=== PATIENT | male | born 1960 | race Caucasian/White ===

== ENCOUNTER 2020-09-01 10:19 | Inpatient (IN) | payer OTHER ==
[~2020-09-01] VITALS: Ht 190.5 cm; Wt 123.9 kg
[~2020-09-01 10:19] MED LIST: ENOXAPARIN SOD 40 MG/0.4 ML SYRINGE SC ONE
[2020-09-01 11:13] LABS: Basophils # (auto) 0.1 10 ^3/uL (0-0.2); Basophils % (auto) 0.8 % (0.0-2.0); Eosinophils # (auto) 0.1 10 ^3/uL (0-0.8); Eosinophils % (auto) 1.4 % (0.0-7.0); Hematocrit 44.1 % (41.0-53.0); Hemoglobin 14.7 g/dL (13.5-17.5); Lymphocytes % (auto) 25.4 % (10.0-50.0); Mean Corpuscular Hgb Conc. 33.2 g/dL (32.0-36.0); Mean Corpuscular Volume 96.4 fL (80.0-100.0); Monocytes # (auto) 0.5 10 ^3/uL (0-1.3); Monocytes % (auto) 6.5 % (0.0-12.0); Neutrophils # (auto) 5.3 10 ^3/uL (1.6-8.6); Neutrophils % (auto) 65.9 % (37.0-80.0); Nucleated Red Blood Cells % 0.1 %; Platelet Count (auto) 198 10^3/uL (140-450); Red Blood Cells 4.58 10^6/uL (4.5-5.90); Red Cell Distribution Width 14.1 % (11.8-14.3)
[2020-09-01 11:31] LABS: Alanine Aminotransferase 25 U/L (16-61); Anion Gap 5 (5-15); Aspartate Aminotransferase 17 U/L (15-37); Blood Urea Nitrogen 17 mg/dL (7-18); Calcium 8.9 mg/dL (8.5-10.1); Carbon Dioxide 23 mmol/L (21-32); Chloride 110 mmol/L (98-107); Glucose 117 mg/dL (74-106); Sodium 138 mmol/L (136-145)
[2020-09-01 11:36] LABS: Alkaline Phosphatase 119 U/L (45-117); BUN/Creatinine Ratio 15.5; Bilirubin, Total 0.4 mg/dL (0.2-1.0); GFR African American 88 mL/min; GFR Non-African American 73 mL/min
[2020-09-01] MEDS ORDERED: cloNIDine HCL 0.1 MG TAB ONE (12:56)
[2020-09-01] MEDS ORDERED: cloNIDine HCL 0.1 MG TAB PO ONE ×2 (13:15→14:15)
[2020-09-01] MEDS ORDERED: MORPHINE SULF INJ 2 MG/ML SYRINGE 1ML IV PRN ×2 (16:30→16:45)
[2020-09-01] MEDS ORDERED: NITROGLYCERIN 0.4 MG SL TAB SL PRN (16:30)
[2020-09-01] MEDS ORDERED: LACTULOSE 20Gm/30ML SOLN PO PRN (16:45)
[2020-09-01] MEDS ORDERED: TEMAZEPAM 15 MG CAP PO PRN (16:45)
[2020-09-01] MEDS ORDERED: traMADol HCL 50 MG TAB PO PRN (16:45)
[2020-09-01] MEDS ORDERED: ACETAMINOPHEN 500 MG TAB PO PRN (16:45)
[2020-09-01] MEDS ORDERED: PROMETHAZINE HCL 25 MG/ML 1ML IV PRN (16:45)
[2020-09-01] MEDS ORDERED: DEXTROSE (50%) 50ML SYRG IV PRN (16:45)
[2020-09-01] MEDS ORDERED: METOPROLOL TARTRATE 25 MG TAB PO ONE (17:00)
[2020-09-01] MEDS: ACCU-CHEK COMFORT CURVE STRIP VI SCH ×2 (17:00→21:58)
[2020-09-01] MEDS ORDERED: ENOXAPARIN SOD 80 MG/0.8ML SYRINGE SC ONE (17:30)
[2020-09-01] MEDS: METOPROLOL TARTRATE 25 MG TAB PO SCH (21:59)
[2020-09-02] MEDS: ASPirin 81 mg TAB PO SCH (08:03)
[2020-09-02] MEDS: METOPROLOL TARTRATE 25 MG TAB PO SCH ×2 (08:03→20:12)
[2020-09-02] MEDS: ACCU-CHEK COMFORT CURVE STRIP VI SCH (08:03)
[2020-09-02 08:37] LABS: Basophils # (auto) 0.1 10 ^3/uL (0-0.2); Eosinophils # (auto) 0.1 10 ^3/uL (0-0.8); Eosinophils % (auto) 1.9 % (0.0-7.0); Hematocrit 39.6 % (41.0-53.0); Hemoglobin 13.3 g/dL (13.5-17.5); Lymphocytes # (auto) 2.3 10 ^3/uL (0.4-5.4); Mean Corpuscular Hemoglobin 31.9 pg (28.0-32.0); Mean Corpuscular Hgb Conc. 33.6 g/dL (32.0-36.0); Monocytes # (auto) 0.5 10 ^3/uL (0-1.3); Monocytes % (auto) 7.1 % (0.0-12.0); Neutrophils # (auto) 4.3 10 ^3/uL (1.6-8.6); Nucleated Red Blood Cells % 0.1 %; Platelet Count (auto) 205 10^3/uL (140-450); Red Blood Cells 4.17 10^6/uL (4.5-5.90); White Blood Cell 7.3 10^3/uL (4.4-10.8)
[2020-09-02 08:51] LABS: Albumin 3.5 g/dL (3.4-5.0); BUN/Creatinine Ratio 14.4; Bilirubin, Total 0.7 mg/dL (0.2-1.0); Calcium 8.5 mg/dL (8.5-10.1); Total Protein 7.2 g/dL (6.4-8.2)
[2020-09-02 08:56] LABS: Potassium 4.7 mmol/L (3.5-5.1)
[2020-09-02] MEDS ORDERED: ENALAPRIL MALEATE 2.5 MG TAB PO SCH (10:00)
[2020-09-02] MEDS ORDERED: ENOXAPARIN SOD 120 MG/0.8 ML SYRINGE SC SCH (10:00)
[2020-09-02] MEDS ORDERED: ENOXAPARIN SOD 40 MG/0.4 ML SYRINGE SC SCH (10:00)
[2020-09-02] MEDS ORDERED: FUROSEMIDE 40 MG/4 ML VIAL IV ONE (13:45)
[2020-09-02] MEDS ORDERED: IOHEXOL 350 MG/ML 100ML IJ ONE (14:56)
[2020-09-02] MEDS: amLODIPine BESYLATE 5 MG TAB PO SCH (16:00)
[2020-09-02 16:36] LABS: Cholesterol 207 mg/dL (< 200); HDL Cholesterol 51 mg/dL (40-59); LDL Cholesterol 142 mg/dL (< 100); Triglycerides 112 mg/dL (< 150)
[2020-09-02] MEDS ORDERED: BENA10TA9 PO (18:08)
[2020-09-02 19:01] LABS: Urine Bacteria NONE SEEN /hpf (None Seen); Urine Blood Negative /uL (Negative); Urine Hyaline Cast FEW /lpf (0 - 2); Urine Specific Gravity 1.015 (1.001-1.035); Urine WBC <1 /hpf (0 - 3)
[2020-09-02 19:04] LABS: Amphetamine Screen, Urine NEGATIVE (NEGATIVE); Barbiturate Scree,Urine NEGATIVE (NEGATIVE); Benzodiazephine Screen, Urine NEGATIVE (NEGATIVE); Cannabinoid Screen, Urine NEGATIVE (NEGATIVE); Cocaine Screen, Urine NEGATIVE (NEGATIVE); Opiate Scree,Urine NEGATIVE (NEGATIVE); Phencyclidine Screen, Urine NEGATIVE (NEGATIVE)
[2020-09-02 19:09] LABS: Alcohol, Urine < 3.0 mg/dL (0-10)
[2020-09-02] MEDS: ENOXAPARIN SOD 60 MG/0.6 ML SYRINGE SC SCH (20:12)
[2020-09-02 22:17] VITALS: BP 135/52
[2020-09-03 05:00] VITALS: BP 142/68
[2020-09-03 05:35] LABS: Basophils # (auto) 0.1 10 ^3/uL (0-0.2); Basophils % (auto) 1.4 % (0.0-2.0); Eosinophils # (auto) 0.2 10 ^3/uL (0-0.8); Eosinophils % (auto) 2.5 % (0.0-7.0); Hematocrit 40.1 % (41.0-53.0); Hemoglobin 13.4 g/dL (13.5-17.5); Lymphocytes % (auto) 42.1 % (10.0-50.0); Mean Corpuscular Hemoglobin 31.9 pg (28.0-32.0); Mean Corpuscular Hgb Conc. 33.5 g/dL (32.0-36.0); Mean Corpuscular Volume 95.3 fL (80.0-100.0); Monocytes # (auto) 0.5 10 ^3/uL (0-1.3); Monocytes % (auto) 7.5 % (0.0-12.0); Neutrophils # (auto) 3.3 10 ^3/uL (1.6-8.6); Neutrophils % (auto) 46.5 % (37.0-80.0); Nucleated Red Blood Cells % 0.1 %; Platelet Count (auto) 195 10^3/uL (140-450); Red Blood Cells 4.21 10^6/uL (4.5-5.90); Red Cell Distribution Width 14.1 % (11.8-14.3); White Blood Cell 7.2 10^3/uL (4.4-10.8)
[2020-09-03 05:53] LABS: BUN/Creatinine Ratio 13.5; Calcium 8.9 mg/dL (8.5-10.1); Magnesium 2.3 mg/dL (1.6-2.6); Phosphorus 3.6 mg/dL (2.5-4.90); Potassium 3.8 mmol/L (3.5-5.1)
[2020-09-03 08:49] VITALS: BP 157/67
[2020-09-03] MEDS: ASPirin 81 mg TAB PO SCH (10:00)
[2020-09-03] MEDS: ENOXAPARIN SOD 60 MG/0.6 ML SYRINGE SC SCH (10:00)
[2020-09-03] MEDS: ENALAPRIL MALEATE 10 MG TAB PO SCH (10:26)
[2020-09-03] MEDS: amLODIPine BESYLATE 5 MG TAB PO SCH (10:26)
[2020-09-03] MEDS: METOPROLOL TARTRATE 25 MG TAB PO SCH ×2 (10:27→21:18)
[2020-09-03] MEDS: FUROSEMIDE 40 MG/4 ML VIAL IV SCH (10:29)
[2020-09-03] MEDS ORDERED: ENOXAPARIN SOD 80 MG/0.8ML SYRINGE SC ONE (10:30)
[2020-09-03 13:00] VITALS: BP 132/70
[2020-09-03 17:00] VITALS: BP 145/68
[2020-09-03] MEDS: ENOXAPARIN SOD 80 MG/0.8ML SYRINGE SC SCH (21:18)
[2020-09-03 22:00] VITALS: BP 145/72
[2020-09-04 05:00] VITALS: BP 141/71
[2020-09-04 05:51] LABS: Basophils # (auto) 0.1 10 ^3/uL (0-0.2); Basophils % (auto) 0.8 % (0.0-2.0); Eosinophils # (auto) 0.2 10 ^3/uL (0-0.8); Eosinophils % (auto) 2.6 % (0.0-7.0); Hematocrit 39.7 % (41.0-53.0); Hemoglobin 13.7 g/dL (13.5-17.5); Lymphocytes # (auto) 3.1 10 ^3/uL (0.4-5.4); Lymphocytes % (auto) 41.7 % (10.0-50.0); Mean Corpuscular Hemoglobin 32.6 pg (28.0-32.0); Mean Corpuscular Hgb Conc. 34.4 g/dL (32.0-36.0); Mean Corpuscular Volume 94.8 fL (80.0-100.0); Monocytes # (auto) 0.6 10 ^3/uL (0-1.3); Neutrophils # (auto) 3.4 10 ^3/uL (1.6-8.6); Neutrophils % (auto) 46.9 % (37.0-80.0); Platelet Count (auto) 194 10^3/uL (140-450); Red Blood Cells 4.19 10^6/uL (4.5-5.90); Red Cell Distribution Width 13.8 % (11.8-14.3); White Blood Cell 7.3 10^3/uL (4.4-10.8)
[2020-09-04 06:17] LABS: BUN/Creatinine Ratio 16.4; Calcium 8.7 mg/dL (8.5-10.1)
[2020-09-04 08:30] VITALS: BP 126/54
[2020-09-04 08:53] LABS: INR 1.03 (0.9-1.15); Partial Thromboplastin Time 27.3 sec (23.0-31.2)
[2020-09-04] MEDS: FUROSEMIDE 40 MG/4 ML VIAL IV SCH (09:20)
[2020-09-04] MEDS: amLODIPine BESYLATE 5 MG TAB PO SCH (09:24)
[2020-09-04] MEDS: ENOXAPARIN SOD 80 MG/0.8ML SYRINGE SC SCH ×2 (09:24→21:23)
[2020-09-04] MEDS: METOPROLOL TARTRATE 25 MG TAB PO SCH ×2 (09:24→21:23)
[2020-09-04] MEDS: ENALAPRIL MALEATE 10 MG TAB PO SCH (09:24)
[2020-09-04] MEDS: ERGOCALCIFEROL 50,000 UNIT(1.25MG) CAP PO SCH (12:21)
[2020-09-04 12:30] VITALS: BP 136/82
[2020-09-04 16:57] VITALS: BP 131/56
[2020-09-04] MEDS: ATORVASTATIN 20 MG TAB PO SCH (21:23)
[2020-09-04 22:00] VITALS: BP 139/54
[2020-09-05 05:00] VITALS: BP 134/58
[2020-09-05 06:49] LABS: Albumin 3.7 g/dL (3.4-5.0); Calcium 8.9 mg/dL (8.5-10.1); Potassium 3.9 mmol/L (3.5-5.1)
[2020-09-05 06:52] LABS: BUN/Creatinine Ratio 16.8
[2020-09-05 06:55] LABS: Bilirubin, Total 0.6 mg/dL (0.2-1.0); Total Protein 7.1 g/dL (6.4-8.2)
[2020-09-05] MEDS: ENOXAPARIN SOD 80 MG/0.8ML SYRINGE SC SCH (07:21)
[2020-09-05 08:30] VITALS: BP 147/90
[2020-09-05 08:37] LABS: Basophils # (auto) 0 10 ^3/uL (0-0.2); Basophils % (auto) 0.6 % (0.0-2.0); Eosinophils # (auto) 0.2 10 ^3/uL (0-0.8); Eosinophils % (auto) 2.2 % (0.0-7.0); Hematocrit 42.1 % (41.0-53.0); Hemoglobin 14.1 g/dL (13.5-17.5); Lymphocytes # (auto) 2.8 10 ^3/uL (0.4-5.4); Lymphocytes % (auto) 35.6 % (10.0-50.0); Mean Corpuscular Hemoglobin 31.9 pg (28.0-32.0); Mean Corpuscular Hgb Conc. 33.6 g/dL (32.0-36.0); Mean Corpuscular Volume 95.1 fL (80.0-100.0); Monocytes # (auto) 0.6 10 ^3/uL (0-1.3); Neutrophils # (auto) 4.2 10 ^3/uL (1.6-8.6); Neutrophils % (auto) 53.6 % (37.0-80.0); Platelet Count (auto) 206 10^3/uL (140-450); Red Blood Cells 4.42 10^6/uL (4.5-5.90); Red Cell Distribution Width 13.6 % (11.8-14.3); White Blood Cell 7.8 10^3/uL (4.4-10.8)
[2020-09-05] MEDS: amLODIPine BESYLATE 5 MG TAB PO SCH (08:41)
[2020-09-05] MEDS: METOPROLOL TARTRATE 25 MG TAB PO SCH ×2 (08:41→21:52)
[2020-09-05] MEDS: ENALAPRIL MALEATE 10 MG TAB PO SCH (08:42)
[2020-09-05 13:17] LABS: Folate (Folic Acid) 11.92 ng/mL (5.38-24)
[2020-09-05 14:30] VITALS: BP 144/58
[2020-09-05] MEDS ORDERED: fentaNYL CITRATE 100 MCG/2 ML VL ONE (14:37)
[2020-09-05] MEDS ORDERED: LIDOCAINE 2%HCL (LOCAL ANESTH.) INJ 20ML MDV ONE (14:38)
[2020-09-05] MEDS ORDERED: MIDAZOLAM HCL 1MG/1ML-2 ML VIAL ONE (14:38)
[2020-09-05 17:00] VITALS: BP 141/59
[2020-09-05] MEDS ORDERED: WARFARIN SODIUM 10 MG TAB PO ONE (17:00)
[2020-09-05] MEDS ORDERED: CYANOCOBALAMIN (B-12) 1000 MCG/1 ML VIAL IM ONE (17:00)
[2020-09-05] MEDS: hydrALAZINE HCL 20 MG/ML VL IV PRN (17:23)
[2020-09-05] MEDS: ENOXAPARIN SOD 120 MG/0.8 ML SYRINGE SC SCH (21:38)
[2020-09-05] MEDS: ATORVASTATIN 20 MG TAB PO SCH (21:38)
[2020-09-05 21:59] VITALS: BP 160/70
[2020-09-06 05:00] VITALS: BP 136/63
[2020-09-06 06:50] LABS: Basophils # (auto) 0.1 10 ^3/uL (0-0.2); Basophils % (auto) 0.7 % (0.0-2.0); Eosinophils # (auto) 0.2 10 ^3/uL (0-0.8); Eosinophils % (auto) 1.7 % (0.0-7.0); Hematocrit 41.2 % (41.0-53.0); Hemoglobin 14.1 g/dL (13.5-17.5); Lymphocytes % (auto) 33.5 % (10.0-50.0); Mean Corpuscular Hemoglobin 32.4 pg (28.0-32.0); Mean Corpuscular Hgb Conc. 34.3 g/dL (32.0-36.0); Mean Corpuscular Volume 94.5 fL (80.0-100.0); Monocytes # (auto) 0.6 10 ^3/uL (0-1.3); Neutrophils # (auto) 5.1 10 ^3/uL (1.6-8.6); Neutrophils % (auto) 57.1 % (37.0-80.0); Platelet Count (auto) 210 10^3/uL (140-450); Red Blood Cells 4.36 10^6/uL (4.5-5.90); Red Cell Distribution Width 13.5 % (11.8-14.3); White Blood Cell 8.9 10^3/uL (4.4-10.8)
[2020-09-06 07:03] LABS: Albumin 3.7 g/dL (3.4-5.0); Calcium 9.1 mg/dL (8.5-10.1); Potassium 3.8 mmol/L (3.5-5.1)
[2020-09-06 07:05] LABS: BUN/Creatinine Ratio 15.1
[2020-09-06 07:13] LABS: INR 1.08 (0.9-1.15); Partial Thromboplastin Time 30.1 sec (23.0-31.2)
[2020-09-06 07:20] LABS: Bilirubin, Total 0.7 mg/dL (0.2-1.0); Total Protein 6.8 g/dL (6.4-8.2)
[2020-09-06 08:33] VITALS: BP 142/58
[2020-09-06] MEDS: amLODIPine BESYLATE 5 MG TAB PO SCH (10:35)
[2020-09-06] MEDS: METOPROLOL TARTRATE 25 MG TAB PO SCH ×2 (10:35→21:42)
[2020-09-06] MEDS: ENALAPRIL MALEATE 10 MG TAB PO SCH (10:36)
[2020-09-06] MEDS: ENOXAPARIN SOD 120 MG/0.8 ML SYRINGE SC SCH ×2 (10:36→21:42)
[2020-09-06 13:05] VITALS: BP 128/72
[2020-09-06 15:12] VITALS: BP 128/72
[2020-09-06] MEDS: WARFARIN SODIUM 10 MG TAB PO ONE ×2 (17:00→17:32)
[2020-09-06 17:06] VITALS: BP 115/71
[2020-09-06] MEDS: ATORVASTATIN 20 MG TAB PO SCH (21:42)
[2020-09-06 22:00] VITALS: BP 139/74
[2020-09-07 05:00] VITALS: BP 124/79
[2020-09-07 06:23] LABS: Basophils # (auto) 0.1 10 ^3/uL (0-0.2); Basophils % (auto) 0.8 % (0.0-2.0); Eosinophils # (auto) 0.2 10 ^3/uL (0-0.8); Eosinophils % (auto) 2.3 % (0.0-7.0); Hemoglobin 13.6 g/dL (13.5-17.5); Lymphocytes % (auto) 40.7 % (10.0-50.0); Mean Corpuscular Hemoglobin 32.1 pg (28.0-32.0); Mean Corpuscular Hgb Conc. 33.9 g/dL (32.0-36.0); Mean Corpuscular Volume 94.7 fL (80.0-100.0); Monocytes # (auto) 0.6 10 ^3/uL (0-1.3); Monocytes % (auto) 8.3 % (0.0-12.0); Neutrophils # (auto) 3.5 10 ^3/uL (1.6-8.6); Neutrophils % (auto) 47.9 % (37.0-80.0); Platelet Count (auto) 183 10^3/uL (140-450); Red Blood Cells 4.22 10^6/uL (4.5-5.90); Red Cell Distribution Width 13.5 % (11.8-14.3); White Blood Cell 7.3 10^3/uL (4.4-10.8)
[2020-09-07 06:39] LABS: Albumin 3.7 g/dL (3.4-5.0); Calcium 8.6 mg/dL (8.5-10.1); Potassium 3.9 mmol/L (3.5-5.1)
[2020-09-07 06:44] LABS: BUN/Creatinine Ratio 14.5; Bilirubin, Total 0.6 mg/dL (0.2-1.0); INR 1.35 (0.9-1.15)
[2020-09-07 08:31] VITALS: BP 146/74
[2020-09-07] MEDS: METOPROLOL TARTRATE 25 MG TAB PO SCH (09:24)
[2020-09-07] MEDS: amLODIPine BESYLATE 5 MG TAB PO SCH (09:24)
[2020-09-07] MEDS: ENALAPRIL MALEATE 10 MG TAB PO SCH (09:25)
[2020-09-07] MEDS: ENOXAPARIN SOD 120 MG/0.8 ML SYRINGE SC SCH ×2 (09:25→21:41)
[2020-09-07 12:33] VITALS: BP 130/74
[2020-09-07 16:31] VITALS: BP 137/71
[2020-09-07] MEDS ORDERED: WARFARIN SODIUM 5 MG TAB PO ONE (17:00)
[2020-09-07 21:30] VITALS: BP 148/74
[2020-09-07] MEDS: ATORVASTATIN 20 MG TAB PO SCH (21:41)
[2020-09-08 05:00] VITALS: BP 139/79
[2020-09-08 06:18] LABS: INR 1.46 (0.9-1.15); Partial Thromboplastin Time 35.8 sec (23.0-31.2)
[2020-09-08 06:23] LABS: Calcium 8.6 mg/dL (8.5-10.1)
[2020-09-08 06:26] LABS: BUN/Creatinine Ratio 13.7; Magnesium 2.5 mg/dL (1.6-2.6)
[2020-09-08 08:15] VITALS: BP 160/77
[2020-09-08 08:33] VITALS: BP 160/77
[2020-09-08] MEDS: amLODIPine BESYLATE 5 MG TAB PO SCH (09:59)
[2020-09-08] MEDS: ENOXAPARIN SOD 120 MG/0.8 ML SYRINGE SC SCH ×2 (09:59→21:47)
[2020-09-08] MEDS: ENALAPRIL MALEATE 10 MG TAB PO SCH (09:59)
[2020-09-08 12:30] VITALS: BP 141/64
[2020-09-08 16:31] VITALS: BP 155/64
[2020-09-08] MEDS ORDERED: WARFARIN SODIUM 2.5 MG TAB PO ONE (17:00)
[2020-09-08] MEDS: ATORVASTATIN 20 MG TAB PO SCH (21:47)
[2020-09-08 22:00] VITALS: BP 156/65
[2020-09-09] VITALS (8 sets, daily range): BP systolic 149–169; BP diastolic 61–99
[2020-09-09 07:33] LABS: INR 1.57 (0.9-1.15); Partial Thromboplastin Time 38.2 sec (23.0-31.2)
[2020-09-09] MEDS: ENOXAPARIN SOD 120 MG/0.8 ML SYRINGE SC SCH ×2 (10:04→21:33)
[2020-09-09] MEDS: amLODIPine BESYLATE 5 MG TAB PO SCH (10:04)
[2020-09-09] MEDS: ENALAPRIL MALEATE 10 MG TAB PO SCH (10:04)
[2020-09-09] MEDS: hydrALAZINE HCL 20 MG/ML VL IV PRN (13:39)
[2020-09-09] MEDS ORDERED: WARFARIN SODIUM 2.5 MG TAB PO ONE (17:00)
[2020-09-09] MEDS: ATORVASTATIN 20 MG TAB PO SCH (21:33)
[2020-09-10 05:00] VITALS: BP 155/57
[2020-09-10 06:38] LABS: INR 1.84 (0.9-1.15); Partial Thromboplastin Time 40.9 sec (23.0-31.2)
[2020-09-10 09:00] VITALS: BP_SYST 132; BP_SYST 163; BP_DIAS 72; BP_DIAS 77
[2020-09-10] MEDS: ENALAPRIL MALEATE 10 MG TAB PO SCH (09:22)
[2020-09-10] MEDS: ENOXAPARIN SOD 120 MG/0.8 ML SYRINGE SC SCH ×2 (09:22→21:36)
[2020-09-10] MEDS: amLODIPine BESYLATE 5 MG TAB PO SCH (09:23)
[2020-09-10 13:00] VITALS: BP 155/71
[2020-09-10 17:00] VITALS: BP 111/57
[2020-09-10] MEDS ORDERED: WARFARIN SODIUM 2.5 MG TAB PO ONE (17:00)
[2020-09-10] MEDS: ATORVASTATIN 20 MG TAB PO SCH (21:36)
[2020-09-10 22:00] VITALS: BP 147/64
[2020-09-11 05:00] VITALS: BP 142/62
[2020-09-11 08:57] LABS: Basophils # (auto) 0 10 ^3/uL (0-0.2); Basophils % (auto) 0.8 % (0.0-2.0); Eosinophils # (auto) 0.1 10 ^3/uL (0-0.8); Eosinophils % (auto) 1.8 % (0.0-7.0); Hematocrit 42.9 % (41.0-53.0); Hemoglobin 14.6 g/dL (13.5-17.5); Lymphocytes # (auto) 2.1 10 ^3/uL (0.4-5.4); Lymphocytes % (auto) 35.6 % (10.0-50.0); Mean Corpuscular Hemoglobin 32.2 pg (28.0-32.0); Mean Corpuscular Volume 94.7 fL (80.0-100.0); Monocytes # (auto) 0.5 10 ^3/uL (0-1.3); Monocytes % (auto) 8.4 % (0.0-12.0); Neutrophils # (auto) 3.1 10 ^3/uL (1.6-8.6); Neutrophils % (auto) 53.4 % (37.0-80.0); Nucleated Red Blood Cells % 0.2 %; Platelet Count (auto) 173 10^3/uL (140-450); Red Blood Cells 4.54 10^6/uL (4.5-5.90); Red Cell Distribution Width 13.7 % (11.8-14.3); White Blood Cell 5.8 10^3/uL (4.4-10.8)
[2020-09-11 09:00] VITALS: BP 48/69
[2020-09-11 09:12] LABS: INR 2.05 (0.9-1.15); Partial Thromboplastin Time 40.7 sec (23.0-31.2)
[2020-09-11 09:17] LABS: Albumin 3.9 g/dL (3.4-5.0); Calcium 8.9 mg/dL (8.5-10.1); Potassium 4.1 mmol/L (3.5-5.1)
[2020-09-11 09:22] LABS: BUN/Creatinine Ratio 16.8; Bilirubin, Total 0.5 mg/dL (0.2-1.0); Total Protein 7.4 g/dL (6.4-8.2)
[2020-09-11] MEDS: amLODIPine BESYLATE 5 MG TAB PO SCH (09:36)
[2020-09-11] MEDS: ENALAPRIL MALEATE 10 MG TAB PO SCH (09:36)
[2020-09-11] MEDS: ENOXAPARIN SOD 120 MG/0.8 ML SYRINGE SC SCH (09:36)
[2020-09-11 13:00] VITALS: BP 184/74
[2020-09-11 13:30] VITALS: BP 164/72
[2020-09-11] MEDS: hydrALAZINE HCL 20 MG/ML VL IV PRN (14:36)
[2020-09-11] MEDS: ERGOCALCIFEROL 50,000 UNIT(1.25MG) CAP PO SCH (15:09)
[2020-09-11 16:00] VITALS: BP 146/77
[2020-09-11 17:00] VITALS: BP 146/77
[2020-09-11] MEDS ORDERED: WARFARIN SODIUM 5 MG TAB PO ONE (17:00)
== END 2020-09-11 18:00 | disposition home or self-care (01) | DRG 175 ==
LOC: ER 10:19 → TELE 10:20 → TELE-WESTW 09-02 17:19
PROVIDERS: ADMIT Internal Medicine; ATTEND Internal Medicine
PROC: 06H03DZ Insertion of Intraluminal Device into Inferior Vena Cava, Percutaneous Approach (ICD-10-PCS; principal; 2020-09-05)
DX: I26.99 Other pulmonary embolism without acute cor pulmonale (principal); U07.1 COVID-19; I82.413 Acute embolism and thrombosis of femoral vein, bilateral; D68.59 Other primary thrombophilia; I82.433 Acute embolism and thrombosis of popliteal vein, bilateral; I82.443 Acute embolism and thrombosis of tibial vein, bilateral; I69.354 Hemiplegia and hemiparesis following cerebral infarction affecting left non-dominant side; I10 Essential (primary) hypertension; R00.8 Other abnormalities of heart beat; E66.9 Obesity, unspecified; I49.3 Ventricular premature depolarization; R73.03 Prediabetes; R26.9 Unspecified abnormalities of gait and mobility; E55.9 Vitamin D deficiency, unspecified; I25.10 Atherosclerotic heart disease of native coronary artery without angina pectoris; Z79.899 Other long term (current) drug therapy; Z80.0 Family history of malignant neoplasm of digestive organs; Z82.49 Family history of ischemic heart disease and other diseases of the circulatory system; Z83.3 Family history of diabetes mellitus; Z86.711 Personal history of pulmonary embolism; Z91.14 Patient's other noncompliance with medication regimen; Z91.19 Patient's noncompliance with other medical treatment and regimen; Z95.828 Presence of other vascular implants and grafts; Z68.34 Body mass index [BMI] 34.0-34.9, adult
CPT/HCPCS: 36415; 70450; 70545; 70547; 71046; 71275; 80048; 80053; 80061; 80307; 81001; 82306; 82550; 82607; 82746; 82962; 83036; 83735; 83880; 84100; 84443; 84484; 85025; 85610; 85652; 85730; 86141; 86850; 86900; 86901; 87426; 93005; 93306; 93886; 93970; 94660; 99152; G0378; J2250

== ENCOUNTER → 2020-12-28 | Outpatient (CLI) | payer OTHER ==
[~2020-12-28] MED LIST changes: +BENA10TA9 PO; -ENOXAPARIN SOD 40 MG/0.4 ML SYRINGE SC ONE
== END | disposition home or self-care (01) ==
LOC: Rad HDHVI 13:00
PROVIDERS: ATTEND Internal Medicine Cardiovascular Disease
DX: I11.9 Hypertensive heart disease without heart failure (principal)
CPT/HCPCS: 93306

== ENCOUNTER → 2021-01-09 | Outpatient (CLI) | payer OTHER ==
[~2021-01-09] VITALS: Ht 190.5 cm; Wt 124.7 kg
[~2021-01-09] MED LIST changes: +ADENOSINE 105 MG in GIVE UN-DILUTED 0 ML IV ONE; +ADENOSINE 90 MG/30 ML INJ IV ONE
== END | disposition home or self-care (01) ==
LOC: Rad HDHVI 13:13
PROVIDERS: ATTEND Internal Medicine Cardiovascular Disease
DX: R94.31 Abnormal electrocardiogram [ECG] [EKG] (principal); I10 Essential (primary) hypertension; E78.5 Hyperlipidemia, unspecified; Z13.0 Encounter for screening for diseases of the blood and blood-forming organs and certain disorders involving the immune mechanism
CPT/HCPCS: 78452; 93005; 96374; 96375; A9500; J0153

== ENCOUNTER → 2021-01-16 | Outpatient (CLI) | payer OTHER ==
[~2021-01-16] MED LIST changes: -ADENOSINE 105 MG in GIVE UN-DILUTED 0 ML IV ONE; -ADENOSINE 90 MG/30 ML INJ IV ONE
[2021-01-16 14:26] LABS: Calcium 8.9 mg/dL (8.5-10.1); Potassium 3.8 mmol/L (3.5-5.1)
[2021-01-16 14:28] LABS: BUN/Creatinine Ratio 17.2
== END | disposition home or self-care (01) ==
LOC: LAB 13:26
PROVIDERS: ATTEND Internal Medicine
DX: E11.9 Type 2 diabetes mellitus without complications (principal); E55.9 Vitamin D deficiency, unspecified
CPT/HCPCS: 36415; 80048; 82274; 82306; 83036

== ENCOUNTER → 2021-01-24 | Outpatient (CLI) | payer OTHER ==
[2021-01-24 09:08] LABS: BUN/Creatinine Ratio 18.5; Calcium 9.2 mg/dL (8.5-10.1)
== END | disposition home or self-care (01) ==
LOC: LAB 07:56
PROVIDERS: ATTEND Internal Medicine
DX: I10 Essential (primary) hypertension (principal)
CPT/HCPCS: 36415; 80048

== ENCOUNTER → 2021-04-13 | Outpatient (CLI) | payer OTHER | END | disposition home or self-care (01) | LOC: LAB 09:34 | PROVIDERS: ATTEND Nurse Practitioner Family | DX: Z20.822 Contact with and (suspected) exposure to COVID-19 (principal) | CPT/HCPCS: 36415; 87426 ==

== ENCOUNTER → 2021-04-16 | Outpatient (CLI) | payer OTHER ==
[~2021-04-16] MED LIST changes: +ALBUTEROL SULF 2.5 MG/0.5ML(0.5%) NEB SOLN ONE; +BENA10TA15 PO; -BENA10TA9 PO
== END | disposition home or self-care (01) ==
LOC: RT 09:25
PROVIDERS: ATTEND Internal Medicine Pulmonary Disease
DX: Z01.811 Encounter for preprocedural respiratory examination (principal)
CPT/HCPCS: 94060; 94727; 94729

== ENCOUNTER → 2022-03-12 | Outpatient (CLI) | payer OTHER ==
[~2022-03-12] MED LIST changes: -ALBUTEROL SULF 2.5 MG/0.5ML(0.5%) NEB SOLN ONE
[2022-03-12 07:23] LABS: Basophils # (auto) 0.1 10 ^3/uL (0-0.2); Basophils % (auto) 0.7 % (0.0-2.0); Eosinophils # (auto) 0.1 10 ^3/uL (0-0.8); Eosinophils % (auto) 1.1 % (0.0-7.0); Hemoglobin 13.7 g/dL (13.5-17.5); Lymphocytes # (auto) 2.8 10 ^3/uL (0.4-5.4); Lymphocytes % (auto) 33.5 % (10.0-50.0); Mean Corpuscular Hemoglobin 29.7 pg (28.0-32.0); Mean Corpuscular Hgb Conc. 32.6 g/dL (32.0-36.0); Mean Corpuscular Volume 91.1 fL (80.0-100.0); Monocytes # (auto) 0.5 10 ^3/uL (0-1.3); Monocytes % (auto) 6.3 % (0.0-12.0); Neutrophils # (auto) 4.8 10 ^3/uL (1.6-8.6); Neutrophils % (auto) 58.4 % (37.0-80.0); Red Blood Cells 4.61 10^6/uL (4.5-5.90); White Blood Cell 8.3 10^3/uL (4.4-10.8)
[2022-03-12 07:52] LABS: Albumin 3.9 g/dL (3.4-5.0)
[2022-03-12 07:56] LABS: Bilirubin, Total 0.5 mg/dL (0.2-1.0); Total Protein 7.6 g/dL (6.4-8.2)
== END | disposition home or self-care (01) ==
LOC: LAB 06:47
PROVIDERS: ATTEND Internal Medicine
DX: I10 Essential (primary) hypertension (principal); R73.9 Hyperglycemia, unspecified
CPT/HCPCS: 36415; 80053; 80061; 82306; 82607; 83036; 84443; 85025

== ENCOUNTER → 2022-04-02 | Outpatient (CLI) | payer OTHER | END | disposition home or self-care (01) | LOC: XYW 15:34 | PROVIDERS: ATTEND Internal Medicine | DX: I51.7 Cardiomegaly (principal); I12.9 Hypertensive chronic kidney disease with stage 1 through stage 4 chronic kidney disease, or unspecified chronic kidney disease | CPT/HCPCS: 93306 ==

== ENCOUNTER → 2022-04-17 | Outpatient (CLI) | payer OTHER ==
[2022-04-17 08:20] LABS: Albumin 4.2 g/dL (3.4-5.0); Calcium 8.9 mg/dL (8.5-10.1); Protein, Urine 12.8 mg/dL (0.0-11.9)
[2022-04-17 08:24] LABS: BUN/Creatinine Ratio 24.4; Bilirubin, Total 0.5 mg/dL (0.2-1.0); Total Protein 7.5 g/dL (6.4-8.2)
[2022-04-17 08:31] LABS: Micro Albumin 8.36 mg/L (0-30.0)
== END | disposition home or self-care (01) ==
LOC: LAB 07:29
PROVIDERS: ATTEND Internal Medicine
DX: E11.22 Type 2 diabetes mellitus with diabetic chronic kidney disease (principal)
CPT/HCPCS: 36415; 80053; 82043; 82570; 83935; 84156; 84300

== ENCOUNTER → 2022-04-17 | Outpatient (CLI) | payer OTHER | END | disposition home or self-care (01) | LOC: LAB 08:16 | PROVIDERS: ATTEND Internal Medicine | DX: I10 Essential (primary) hypertension (principal); R73.01 Impaired fasting glucose | CPT/HCPCS: 82274 ==